=== PATIENT | male | born 1955 | race Caucasian/White ===

== ENCOUNTER 2018-06-03 08:06 | Day surgery (SDC) | payer OTHER ==
[~2018-06-03] VITALS: Ht 172.7 cm; Wt 73.0 kg
--- NOTE | 2018-06-03 10:02 | NUR ---
06/03/18 Nely Noel 0919 PT ARRIVED TO PACU ON 2L VIA NC. PT WOKE TO TACTILE STIMULI AND DENIES NAUSEA AND PAIN. PT REORIENTED TO PACU. PT BACK TO SLEEP. RESP EVEN AND UNLABORED.
--- NOTE | 2018-06-03 17:33 | OR ---
[facility] [address], [place] [address] Signed DATE OF OPERATION: 06/03/2018 SURGEON: Pernell Olsen MD PREOPERATIVE DIAGNOSES: History of hyperplastic polyp in 2013, episodic constipation and diarrhea. POSTOPERATIVE DIAGNOSES: 1. Numerous diverticula throughout colon. 2. Sessile polyp at splenic flexure (excised). PROCEDURE(S) PERFORMED: Total colonoscopy to cecum with cold snare polypectomy x1. ANESTHESIA: Intravenous sedation, fentanyl 150 mcg, and Versed 7 mg. INDICATIONS: This 62-year-old white man is patient of Dr. Haider and known to me from the past having undergone colonoscopy in 2012, at which time he was found to have a hyperplastic polyp. He has no family history of colon cancer. He is generally symptom-free without rectal bleeding, but has had occasions of diarrhea, constipation, but not much. He was admitted at this time to undergo surveillance colonoscopy. Understand risks of bleeding, infection, perforation. FINDINGS: The prep was excellent. Complete colonoscopy was undertaken to the cecum. There were numerous diverticula throughout the colon including the left side and right side. There was a sessile polyp approximately 8 mm in size at the splenic flexure at 90 cm, this was excised with cold snare technique completely. There were no other findings of concern. DESCRIPTION OF PROCEDURE: The patient was brought to the endoscopy suite and placed in lateral decubitus position and given intravenous sedation to the point of slurred speech and nystagmus. Digital rectal examination was normal. An Olympus video colonoscope was passed in the rectum and manipulated into the sigmoid, where diverticula were noted. With various manipulations, the scope was ultimately passed to the cecum. The ileocecal valve and appendiceal orifice were normal. Photographs were taken. The scope was withdrawn from that point. Examination Electronically Signed By: PERNELL OLSEN MD 06/03/18 1733 PATIENT NAME: GLADYS KIMBROUGH OPERATIVE REPORT DATE OF : 59 REPORT #: [id number] PHYSICIAN: PERNELL OLSEN MD PCP: RONI HAIDER DO REPORT IS CONFIDENTIAL AND NOT TO BE RELEASED WITHOUT AUTHORIZATION [facility] [address], [place] [address] Signed throughout showed diverticula throughout the colon. At the splenic flexure at approximately 90 cm from the anal verge was a small sessile polyp. Narrow band imaging confirmed this likely to be adenomatous, this was excised with cold morcellation technique completely. Photographs were additionally taken. The scope was further withdrawn. No other polyps were noted. Retroflexed view of the rectum was normal. Scope was removed. The patient was taken to recovery room in good condition. CONCLUDING DIAGNOSES: 1. Diverticulosis. 2. Sessile polyp at 90 cm (splenic flexure). PLAN: Recommend repeat colonoscopy in 3 years if the polyp hyperplastic, he will return to the ongoing care of Dr. Haider, otherwise. MD DILLON Sherwood/EMMAL /[id number] cc: Roni Haider DO Copies: RONI HAIDER DO ~ Electronically Signed By: PERNELL OLSEN MD 06/03/18 1733 PATIENT NAME: GLADYS KIMBROUGH OPERATIVE REPORT DATE OF : 59 REPORT #: [id number] PHYSICIAN: PERNELL OLSEN MD PCP: RONI HAIDER DO REPORT IS CONFIDENTIAL AND NOT TO BE RELEASED WITHOUT AUTHORIZATION
== END 2018-06-03 10:45 | disposition home or self-care (01) ==
LOC: OPS 08:06 → DS 09:00 → OPS 09:00
PROVIDERS: Surgery
PROC: 0DBL8ZZ Excision of Transverse Colon, Via Natural or Artificial Opening Endoscopic (ICD-10-PCS; principal; 2018-06-03 09:00)
DX: D12.3 Benign neoplasm of transverse colon (principal); K57.30 Diverticulosis of large intestine without perforation or abscess without bleeding; K59.00 Constipation, unspecified; Z86.010 Personal history of colon polyps; Z98.890 Other specified postprocedural states
CPT/HCPCS: 99153; G0500; J2250; J3010; J7120